=== PATIENT | male | born 1970 | race Caucasian/White ===

== ENCOUNTER 2019-12-29 10:47 | Emergency (ER) | payer SELFPAY ==
[2019-12-29 10:55] VITALS: BP 160/83; PULSE 83; RESP 16; TEMP 36.7; O2SAT 98
--- NOTE | 2019-12-29 11:07 | ED.LOWEXIN ---
HPI - Extremity Injury (Lower) General Chief Complaint: Extremity Injury, Lower Stated Complaint: left leg sore/poss hernia Time Seen by Provider: 12/29/19 11:07 Source: patient Mode of arrival: ambulatory Limitations: no limitations History of Present Illness HPI Narrative: Jason Jean is a 49 yo male with a reported PMH of HTN, back pain, diabetes, who comes with left lower leg pain, superficial scrape to the medial side of lower leg that is now red and tender. Patient has been off his hypertension meds and his diabetes medication for about 8 months because he is disabled and lives allowed his medical card to lapse. He is currently working with him to try and get his [place] medical cards reinstated. Also complaining of the left mid abdomen tenderness after picking up her grandchild that radiates to back Related Data Home Medications Medication Instructions Recorded Confirmed hydrocodone-acetaminophen [[place]] 12/29/19 Allergies Allergy/AdvReac Type Severity Reaction Status Date / Time No Known Allergies Allergy Verified 12/29/19 11:05 Review of Systems Review of Systems: Narrative: CONSTITUTIONAL: Denies fever, chills, sweats. EYES: Denies visual changes, redness, discharge. ENT: Denies rhinorrhea, congestion, sore throat, otalgia. CARDIOVASCULAR: Denies chest pain, palpitations, edema. RESPIRATORY: Denies dyspnea, wheezing, cough GASTROINTESTINAL: Denies abdominal pain, nausea, vomiting, diarrhea. Tenderness at the mid left upper abdomen that radiates backwards superficially GENITOURINARY: Denies dysuria, hematuria, abnormal discharge SKIN: Denies rash or itching. Left lower leg tenderness and redness NEUROLOGIC: Denies numbness, or focal weakness. PSYCHIATRIC: Denies anxiety or depression. PMFSH Past Medical History Medical History Diabetes Hypertension Social History Social History (Updated 12/29/19 @ 11:14 by Evelyn Vincent CNP) Smoking packs per day: 1.0 Smoking cigarettes per day: 20.0 Smoking status: Current every day smoker Alcohol intake: never Comments At time of signature, I agree with nursing past medical, surgical, social and family history. There is no relevant family history pertinent to the presenting complaint. Exam Narrative: Exam Narrative: GENERAL: This is a well-nourished, well-developed patient, in mild distress. HEAD: normocephalic, atraumatic. EYES: Sclera clear/white. Vision is grossly intact. EARS: External ears normal, . Hearing grossly intact. NOSE: External nose normal without nasal discharge, nares without redness, no rhinorrhea. THROAT: Mucous membranes moist, posterior pharynx NECK: Neck supple, non-tender CARDIOVASCULAR: Regular rate and rhythm without murmurs, gallops, or rubs. RESPIRATORY: Clear to auscultation. Breath sounds equal bilaterally. No wheezes, rales, or rhonchi. GASTROINTESTINAL: Abdomen soft, non-tender, 3 x 4 area noted left upper abdomen that is tender but not indurated SKIN: warm, intact with no suspicious lesions or rash, good texture and turgor. Left medial leg tenderness with redness from below knee to above ankle, no induration, no tightness, superficial abrasion NEURO: awake, alert, and oriented to person, place and time. There were no obvious focal neurologic abnormalities. Steady gait EXTREMITIES: Normal range of motion. BACK: Nontender without deformity Course Course Emergency Course: Started on Bactrim and Keflex for left lower leg ; left abdominal muscle tenderness Discussed the patient needs to follow-up with primary care doctor for hypertension and diabetes to restart medication-and the consequences of not getting blood pressure under control Follow-up with PCP Vital Signs Vital signs: Vital Signs Temperature 98.1 F 12/29/19 10:55 Pulse Rate 83 12/29/19 10:55 Respiratory Rate 16 12/29/19 10:55 Blood Pressure 160/83 H 12/29/19 10:55 Pulse O
== END 2019-12-29 11:53 | disposition home or self-care (01) ==
PROVIDERS: Emergency Provider Nurse Practitioner; PCP Internal Medicine
DX: L08.9 Local infection of the skin and subcutaneous tissue, unspecified (principal); B96.89 Other specified bacterial agents as the cause of diseases classified elsewhere; R10.12 Left upper quadrant pain; S80.812A Abrasion, left lower leg, initial encounter; X58.XXXA Exposure to other specified factors, initial encounter; I10 Essential (primary) hypertension; E11.9 Type 2 diabetes mellitus without complications; F17.210 Nicotine dependence, cigarettes, uncomplicated
CPT/HCPCS: 99213; G0463

== ENCOUNTER 2020-02-22 12:11 | Emergency (ER) | payer MEDICARE, MEDICAID, SELFPAY ==
[2020-02-22 12:15] VITALS: BP 149/84; PULSE 76; RESP 16; TEMP 36.4; O2SAT 99
[2020-02-22 12:24] LABS: Glucose Point of Care 437 (65-105)
[2020-02-22 12:56] LABS: Alveolar/Arterial O2 Gradient 30.7 mmHg; Base Excess ABG -1.6 mEq/l (+/-2.0); Carboxyhemoglobin 8.3 % THb (0-2.0); Device ROOM AIR; Fractional Inspired Oxygen 21 %; HCO3 ABG 22.2 mEq/l (22.0-26.0); Methemoglobin ABG 0.1 %THb (0-1.5); Modified Allen's Test Pass; Oxygen Content ABG 20.6 %vol (16.0-22.0); Oxygen Saturation ABG 95.7 % (95.0-100.0); Oxyhemoglobin 87.9 % THb (90.0-100.0); PCO2 ABG 35.2 mmHg (35.0-45.0); PO2 ABG 76.9 mmHg (80.0-100.0); PO2 FiO2 Ratio Arterial Blood 3.66 %; Reduced Hemoglobin 3.7 %THb (0-5.0); Site Drawn LEFT RADIAL; Total Hemoglobin 16.7 g/dL (12.0-18.0); pH ABG 7.417 (7.350-7.450)
[2020-02-22 13:01] VITALS: BP 130/80; PULSE 70; RESP 22; O2SAT 95
[2020-02-22] MEDS: SODIUM CHLORIDE 0.9% IV 1,000 ML 999 ML IV CONT (13:06)
[2020-02-22 13:08] LABS: Basophils Percent Auto 0.4 % (0.2-1.2); Eosinophils Absolute Auto 0.2 K/mm3 (0-0.3); Eosinophils Percent Auto 1.5 % (0-4.4); Hematocrit 44.6 % (42.0-52.0); Hemoglobin 16.1 g/dL (14.0-18.0); Immature Granulocyte Absolute 0.05 K/mm3 (0.00-0.031); Immature Granulocyte Percent A 0.5 % (0-0.5); Lymphocytes Absolute Auto 3.81 K/mm3 (0.9-3.2); Lymphocytes Percent Auto 35.2 % (18.3-44.2); Mean Corpuscular HGB Conc 36.1 g/dl (32-36); Mean Corpuscular Hemoglobin 31.7 pg (26-34); Mean Corpuscular Volume 87.8 fl (80-100); Mean Platelet Volume 11.1 fl (7.4-10.4); Monocytes Absolute Auto 0.9 K/mm3 (0.1-0.6); Monocytes Percent Auto 8.6 % (2.6-8.5); Neutrophils Absolute Auto 5.8 K/mm3 (1.3-6.7); Neutrophils Percent Auto 53.8 % (45.5-73.1); Platelet Count Result 177 k/mm3 (150-375); Red Blood Count 5.08 M/mm3 (4.6-6.20); Red Cell Distribution Width 11.8 % (11.5-14.5); White Blood Count 10.8 K/mm3 (4.5-10.0)
[2020-02-22 13:13] LABS: Add Urine Microscopic? YES; Appearance Urine Clear (Clear); Bilirubin Urine Negative (Negative); Blood Urine Negative (Negative); Color Urine Straw (Yellow); Glucose Urine UA 3+ mg/dL (Negative); Ketones Urine Negative (Negative); Leukocyte Esterase Ur Negative LEU/UL (Negative); Nitrate Urine Negative (Negative); Protein Urine Negative (Negative); RBC Urine 0-2 /hpf (0-2); Urobilinogen Urine Negative mg/dL (<2.0)
[2020-02-22 13:16] VITALS: BP 129/85; PULSE 68; RESP 18; O2SAT 95
[2020-02-22 13:20] LABS: Alanine Aminotransferase 24 U/L (4-50); Albumin Level 4.1 g/dL (3.5-5.1); Alkaline Phosphatase 215 U/L (38-126); Anion Gap 10 mmol/L (8-16); Aspartate Amino Transferase 23 U/L (17-59); Bilirubin,Total 0.5 mg/dL (0.2-1.3); Blood Urea Nitrogen 13 mg/dL (9-20); Calcium 9.2 mg/dL (8.4-10.2); Carbon Dioxide 26 mmol/L (22-30); Chloride 97 mmol/L (98-107); Estimated CRCL calculation 154 ml/min; Estimated Glomerular Filt Rate > 60; Glucose 431 mg/dL (75-110); Phosphorus 3.5 mg/dL (2.5-4.5); Potassium 3.8 mmol/L (3.4-5.0); Sodium 133 mmol/L (137-145)
--- NOTE | 2020-02-22 13:20 | ED.ABDPAIN ---
HPI - Abdominal Pain General Chief Complaint: Recheck/Abnormal Lab/Rx Stated Complaint: ELEVATED A1C UNCONTROLLED DM Time Seen by Provider: 02/22/20 12:16 Source: patient Mode of arrival: ambulatory Limitations: no limitations History of Present Illness HPI narrative: Patient is a 49-year-old male who presents to emergency department for evaluation of hyperglycemia notes history of being out of his diabetic medications which were Metformin and glipizide due to Covid and losing his insurance he has not followed up with primary care and currently does not have 1 patient is been without his medications had outpatient blood work performed by his pain specialist and was found to have an elevated A1c patient presents noting chronic back pain but denies any other complaints or recent illness Related Data Home Medications Medication Instructions Recorded Confirmed hydrocodone-acetaminophen [[place]] 12/29/19 Allergies Allergy/AdvReac Type Severity Reaction Status Date / Time No Known Allergies Allergy Verified 02/22/20 12:50 Review of Systems Review of Systems: All systems reviewed & are unremarkable except as noted in HPI and below PMFSH Past Medical History Medical History Diabetes Hypertension Surgical History Surgical History History of orthopedic surgery Social History Social History Smoking packs per day: 1.0 Smoking cigarettes per day: 20.0 Smoking status: Current every day smoker Alcohol intake: never Exam Narrative: Exam Narrative: GENERAL: Well-appearing, well-nourished, and in no acute distress. HEAD: Normocephalic, atraumatic. EYES: PERRLA and EOMI. ENT: Nares clear, no rhinorrhea or epistaxis. Mucous membranes moist. CHEST: Clear to auscultation. No respiratory distress. No wheezes rales or rhonchi HEART: Regular rate and rhythm. No murmur heard. Normal peripheral pulses. ABDOMEN: Soft, nontender, nondistended EXTREMITIES: Normal range of motion. No edema. SKIN: Warm, dry, no rash. NEURO: No focal deficits. Alert and oriented x3. Cranial nerves II through XII grossly intact PSYCH: Normal mood and affect. Course Course Emergency Course: Patient will be discharged home at this time with follow-up with primary care in the room in no distress felt appropriate for outpatient reevaluation improvement of his blood sugars no high risk changes in the blood work or imaging will be discharged with medications with primary care follow-up felt appropriate as noted for outpatient management Vital Signs Vital signs: Vital Signs Temperature 97.6 F 02/22/20 12:15 Pulse Rate 76 02/22/20 12:15 Respiratory Rate 16 02/22/20 12:15 Blood Pressure 149/84 H 02/22/20 12:15 Pulse Oximetry 99 02/22/20 12:15 Temperature 97.6 F 02/22/20 12:15 Pulse Rate 76 02/22/20 12:15 Respiratory Rate 16 02/22/20 12:15 Blood Pressure 149/84 H 02/22/20 12:15 Pulse Oximetry 99 02/22/20 12:15 MDM - Abdominal Pain MDM Narrative Medical decision making narrative: Patient with hyperglycemia will have his medications filled advised to follow with primary care given resources no high risk changes in the blood work no high risk changes in the CBC normal electrolytes his sugar improved considerably with hydration normal kidney function. Lab Data Result diagrams: 02/22/20 13:00 02/22/20 13:00 Labs: Lab Results 02/22/20 02/22/20 02/22/20 Range/Units 12:22 12:52 12:52 WBC (4.5-10.0) K/mm3 RBC (4.6-6.20) M/mm3 Hgb (14.0-18.0) g/dL Hct (42.0-52.0) % MCV (80-100) fl MCH (26-34) pg MCHC (32-36) g/dl RDW (11.5-14.5) % Plt Count (150-375) k/mm3 MPV (7.4-10.4) fl Immature Gran % (Auto) (0-0.5) % Neut % (Auto) (45.5-73.1) % Lymph % (Auto)
[2020-02-22 13:26] LABS: Beta-Hydroxybutyrate/Acetoacetate 0.32 mmol/L (0.02-0.27)
[2020-02-22 13:31] VITALS: BP 129/83; PULSE 67; RESP 19; O2SAT 95
[2020-02-22 13:39] LABS: Specific Grav Ur 1.032 (1.001-1.035)
[2020-02-22] MEDS: INSULIN HUMAN REGULAR (*BKC) 100 UNITS/ML 10 UNITS IV PUSH (13:39)
[2020-02-22 13:46] VITALS: BP 132/77; PULSE 60; RESP 17; O2SAT 96
[2020-02-22 13:46] LABS: Hemoglobin A1C > 14.0 % (<5.7)
[2020-02-22 14:01] VITALS: BP 136/79; PULSE 68; RESP 22; O2SAT 92
[2020-02-22 14:55] LABS: Glucose Point of Care 232 (65-105)
== END 2020-02-22 15:10 | disposition home or self-care (01) ==
PROVIDERS: Emergency Medicine Emergency Medical Services; Emergency Provider Emergency Medicine
DX: E11.65 Type 2 diabetes mellitus with hyperglycemia (principal); I10 Essential (primary) hypertension; F17.210 Nicotine dependence, cigarettes, uncomplicated; Z79.84 Long term (current) use of oral hypoglycemic drugs
CPT/HCPCS: 36415; 36600; 80053; 81001; 82010; 82375; 82805; 83036; 83050; 83735; 84100; 85025; 96361; 96374; 99284; J1815; J7030

== ENCOUNTER 2023-04-12 10:38 | Emergency (ER) | payer MEDICARE, MEDICAID, SELFPAY ==
[2023-04-12 10:46] VITALS: BP 152/90; PULSE 81; RESP 20; TEMP 36.4; O2SAT 97
--- NOTE | 2023-04-12 11:35 | ED.GENADULT ---
HPI - General Adult General Chief complaint: Extremity Problem,Nontraumatic Stated complaint: Wound Check/Left Leg Time Seen by Provider: 04/12/23 11:35 Source: patient, RN notes reviewed and old records reviewed Mode of arrival: ambulatory Limitations: no limitations History of Present Illness HPI narrative: 52 year old male presents to express care with complaints of having bypass surgery to his left leg on 03/08/2023 at [facility]. He presents to clinic today with complaints of concern for wound area on his left lower leg which is open and having some drainage noted on dressing. Patient reports that he called his surgeon and his primary doctor and can not be seen till May. Patient reports no known recent fevers.Patient reports that he has been applying some wet saline dressing to area and covering with lewis wrap.Patient reports that area opened up after sanford had been removed. Patient reports that his blood sugars have been elevated. MD complaint: concern over wound on left lower leg post bypass surgery. Location: left and lower extremity (lower inner leg) Severity scale (1-10): 8 Exacerbating factors: other (ambulation) Treatments prior to arrival: other (wet saline dressing) Related Data Home Medications Medication Instructions Recorded Confirmed aspirin 81 mg capsule 81 mg PO DAILY 04/12/23 04/12/23 atorvastatin 10 mg tablet (Lipitor) 10 mg PO DAILY 04/12/23 04/12/23 hydrocodone 10 mg-acetaminophen 1 tablet PO TID 04/12/23 04/12/23 325 mg tablet insulin aspart U-100 100 unit/mL See Rx Instructions .Route .COMPLEX 04/12/23 04/12/23 (3 mL) subcutaneous pen (Novolog FlexPen U-100 Insulin aspart) insulin glargine 100 unit/mL (3 See Rx Instructions .Route .COMPLEX 04/12/23 04/12/23 mL) subcutaneous pen (Basaglar KwikPen U-100 Insulin) pregabalin 25 mg capsule (Lyrica) 25 mg PO HS 04/12/23 04/12/23 pregabalin 50 mg capsule 50 mg PO TID 04/12/23 04/12/23 semaglutide 1 mg/dose (4 mg/3 mL) See Rx Instructions .Route .COMPLEX 04/12/23 04/12/23 subcutaneous pen injector (Ozempic) Allergies Allergy/AdvReac Type Severity Reaction Status Date / Time No Known Allergies Allergy Verified 04/12/23 11:08 Review of Systems Review of Systems: CONSTITUTIONAL: Denies fever, chills, or sweats. EYES: Denies visual changes, redness, or discharge. ENT: Denies rhinorrhea, congestion, sore throat, or otalgia. CARDIOVASCULAR: Denies chest pain, palpitations, or edema. RESPIRATORY: Denies cough or dyspnea. GASTROINTESTINAL: Denies abdominal pain, nausea, vomiting, or diarrhea. GENITOURINARY: Denies dysuria or hematuria. SKIN: Incision line of left lower leg gapping with inner tissue pink with no purulent drainage noted mild swelling and redness of area. MUSCULOSKELETAL:reports chronic back pain, joint pain, or myalgia. NEUROLOGIC: Denies headache, numbness, or weakness. PSYCHIATRIC: Positive for history of anxiety or depression. All systems reviewed & are unremarkable except as noted in HPI and below PMFSH Past Medical History Medical History (Updated 04/14/23 @ 09:14 by Kesha Baxter NP) COPD (chronic obstructive pulmonary disease) Diabetes Hyperlipidemia Hypertension Manic depressive disorder PVD (peripheral vascular disease) Surgical History Surgical History (Updated 04/14/23 @ 09:14 by Kesha Baxter NP) H/O Spinal surgery History of orthopedic surgery Status post femoral-popliteal bypass surgery Social History Social History (Updated 04/14/23 @ 09:11 by Kesha Baxter NP) Smoking packs per day: 1.0 Smoking cigarettes per day: 20.0 Smoking status: Current some day smoker Tobacco type: cigarettes Alcohol intake: never Substance use type: opiates Other substance usage details: pain management Gender identity (if verbalized by the patient): Male Comments At time of signature, agree with nursing past medical, surgical, social and family history. There is no relevant family history
[2023-04-12 12:01] LABS: Glucose Point of Care 293 mg/dl (65-105)
== END 2023-04-12 12:30 | disposition home or self-care (01) ==
PROVIDERS: Emergency Provider Registered Nurse
DX: Z48.01 Encounter for change or removal of surgical wound dressing (principal); E11.65 Type 2 diabetes mellitus with hyperglycemia; Z79.4 Long term (current) use of insulin; J44.9 Chronic obstructive pulmonary disease, unspecified; E78.5 Hyperlipidemia, unspecified; E11.51 Type 2 diabetes mellitus with diabetic peripheral angiopathy without gangrene; F17.210 Nicotine dependence, cigarettes, uncomplicated; Z79.82 Long term (current) use of aspirin
CPT/HCPCS: 82948; 99203; G0463

== ENCOUNTER 2023-06-28 08:04 | Outpatient (CLI) | payer MEDICARE, MEDICAID, SELFPAY ==
--- NOTE | ~2023-06-28 | XR_ITS ---
Left Knee Technique: AP, lateral, and sunrise views were obtained. Clinical History: Arthritis Findings: No acute fracture or dislocation is seen. Old, healed fracture deformity the proximal fibul ar shaft noted. Osseous alignment is anatomic. Joint spaces are preserved without degenerative or ero sive change. Soft tissues are unremarkable. No joint effusion is seen. Impression: No significant abnormality seen. Reviewed, dictated and finalized at location . GORY DEVELOPMENT ANALYST Impression: No significant abnormality seen.
--- NOTE | ~2023-06-28 | XR_ITS ---
Right Knee Technique: AP, lateral, and sunrise views were obtained. Clinical History: Arthritis Findings: No fracture or dislocation is seen. Osseous alignment is anatomic. Joint spaces are preserv ed without degenerative or erosive change. Soft tissues are unremarkable. No joint effusion is seen. Impression: Unremarkable right knee radiographs. Reviewed, dictated and finalized at location . F ENGINEER'S HELPER Impression: Unremarkable right knee radiographs.
== END 2023-06-28 08:05 ==
PROVIDERS: PCP Nurse Practitioner Family; Visit Provider Nurse Practitioner Family
DX: M17.0 Bilateral primary osteoarthritis of knee (principal)
CPT/HCPCS: 73562

== ENCOUNTER 2023-07-30 07:36 | Outpatient (CLI) | payer MEDICARE, MEDICAID, SELFPAY ==
--- NOTE | ~2023-07-30 | MR_ITS ---
EXAMINATION: MR lumbar spine wo con DATE: 07/30/2023 08:13 INDICATION: Lumbar radicular pain. Low back pain. Bilateral leg pain. TECHNIQUE: Magnetic resonance imaging (MRI) of the lumbar spine was performed without intravenous con trast. COMPARISON: None FINDINGS: L5 is a transitional segment. There is 7 degrees levocurvature of lumbar spine. There is mi ld chronic anterior wedging of T12 and L1 1 vertebral bodies. There are Schmorl's nodes at multiple l evels. Intervertebral disc heights are normal. The distal spinal cord signal intensity is normal. The conus medullaris is at T12. The following disc levels are specifically discussed: L1-L2: The disc is bulging. There is mild bilateral facet joint osteoarthritis. There is mild bilater al neural foraminal stenosis. There is mild central canal stenosis. L2-L3: The disc is bulging and has an annular fissure. There is mild right and moderate left facet laura int osteoarthritis. There is mild bilateral neural foraminal stenosis. There is mild central canal st enosis. L3-L4: The disc is bulging. There is moderate bilateral facet joint osteoarthritis. There is mild rig ht and moderate left neural foraminal stenosis. There is mild central canal stenosis. L4-L5: The disc is bulging and has an annular fissure. There is severe bilateral facet joint osteoart hritis. There is mild bilateral neural foraminal stenosis. There is mild central canal stenosis. L5-S1: The disc does not extend beyond the endplate margin. There is moderate bilateral facet joint o steoarthritis. There is mild left neural foraminal stenosis. There is no central canal stenosis. IMPRESSION: 1. Moderate left neural foraminal stenosis at L3-L4. Otherwise mild lumbar spondylosis. Reviewed, dictated and finalized at location A. IMPRESSION: 1. Moderate left neural foraminal stenosis at L3-L4. Otherwise mild lumbar spon dylosis.
== END 2023-07-30 07:37 ==
PROVIDERS: PCP Nurse Practitioner Family; Visit Provider Nurse Practitioner Family
DX: M54.16 Radiculopathy, lumbar region (principal); M48.061 Spinal stenosis, lumbar region without neurogenic claudication; M43.06 Spondylolysis, lumbar region
CPT/HCPCS: 72148